=== PATIENT | male | born 1955 | race Caucasian/White ===

== ENCOUNTER 2017-01-14 09:22 | Outpatient (CLI) | payer MEDICARE, OTHER ==
[2017-01-14 11:25] LABS: ALT (SGPT) 8 U/L (0-55); AST (SGOT) 8 U/L (5-34); Albumin 4.1 g/dL (3.4-4.8); Alkaline Phosphatase 98 U/L (40-150); Anion Gap 15 mmol/L (10-20); BUN (Urea Nitrogen) 34 mg/dL (8.4-25.7); Bilirubin, Total 0.7 mg/dL (0.2-1.2); Calc. Creatinine Clearance 0 mL/min (70-130); Calcium 9.3 mg/dL (7.8-10.44); Carbon Dioxide 30 mmol/L (23-31); Chloride 97 mmol/L (98-107); Cholesterol 137 mg/dL (< 200 Desired); Estimated GFR-MDRD 61; Globulin 2.8 g/dL (2.4-3.5); Glucose 236 mg/dL (80-115); HDL Cholesterol 34 mg/dL (>60 Neg Risk); LDL Cholesterol, Calculated 59 mg/dL; Potassium 4.2 mmol/L (3.5-5.1); Protein, Total 6.9 g/dL (5.8-8.1); Sodium 138 mmol/L (136-145); Triglycerides 221 mg/dL (Less than 150)
[2017-01-14 11:26] LABS: #Basophils 0.1 thou/uL (0.0-0.2); #Eosinphils 0.5 thou/uL (0.0-0.7); #Lymphocytes 3.1 thou/uL (1.20-3.40); #Monocytes 0.9 thou/uL (0.11-0.59); #Neutrophils 7.8 thou/uL (1.40-6.50); %Basophils 0.9 % (0.0-1.0); %Eosinophils 4.1 % (0.0-10.0); %Lymphocytes 25.2 % (21.0-51.0); %Monocytes 6.9 % (0.0-10.0); %Neutrophils 62.9 % (42.0-75.0); Hemoglobin 16.3 g/dL (14.0-18.0); Mean Corpuscular Hemoglobin 26.3 pg (27.0-31.0); Mean Corpuscular Volume 84.8 fl (80.0-94.0); Mean Platelet Volume 8.5 fL (7.4-10.4); Platelet Count 189 thou/uL (130-400); RBC Distribution Width 15.6 % (11.5-14.5); Red Blood Cell (RBC) Count 6.21 mill/uL (4.70-6.10); White Blood Cell (WBC) Count 12.4 thou/uL (4.8-10.8)
[2017-01-14 11:40] LABS: Hemoglobin A1c 10.9 % (4.0-6.0)
== END 2017-01-14 09:23 | disposition home or self-care (01) ==
LOC: HPCALD 09:22
PROVIDERS: ATTEND Family Medicine
DX: E78.00 Pure hypercholesterolemia, unspecified (principal); E11.9 Type 2 diabetes mellitus without complications; I10 Essential (primary) hypertension; Z12.5 Encounter for screening for malignant neoplasm of prostate
CPT/HCPCS: 36415; 80053; 80061; 83036; 85025; G0103

== ENCOUNTER 2017-04-20 10:25 | Outpatient (CLI) | payer MEDICARE, OTHER ==
[2017-04-20 11:53] LABS: #Basophils 0.2 thou/uL (0.0-0.2); #Eosinphils 0.4 thou/uL (0.0-0.7); #Lymphocytes 3.8 thou/uL (1.20-3.40); #Monocytes 0.7 thou/uL (0.11-0.59); #Neutrophils 6.8 thou/uL (1.40-6.50); %Basophils 1.3 % (0.0-1.0); %Eosinophils 3.8 % (0.0-10.0); %Lymphocytes 32.2 % (21.0-51.0); %Monocytes 5.9 % (0.0-10.0); %Neutrophils 56.8 % (42.0-75.0); Hemoglobin 15.9 g/dL (14.0-18.0); Mean Corpuscular HGB CONC 32.5 g/dL (32.0-36.0); Mean Corpuscular Hemoglobin 26.5 pg (27.0-31.0); Mean Corpuscular Volume 81.3 fl (80.0-94.0); Mean Platelet Volume 7.2 fL (7.4-10.4); Platelet Count 278 thou/uL (130-400); RBC Distribution Width 14.9 % (11.5-14.5); White Blood Cell (WBC) Count 11.9 thou/uL (4.8-10.8)
[2017-04-20 12:12] LABS: Hemoglobin A1c 9.3 % (4.0-6.0)
[2017-04-20 12:13] LABS: ALT (SGPT) 13 U/L (8-55); AST (SGOT) 10 U/L (5-34); Albumin 3.8 g/dL (3.4-4.8); Alkaline Phosphatase 110 U/L (40-150); Anion Gap 17 mmol/L (10-20); BUN (Urea Nitrogen) 25 mg/dL (8.4-25.7); Bilirubin, Total 0.5 mg/dL (0.2-1.2); Calc. Creatinine Clearance 0 mL/min (70-130); Calcium 9.5 mg/dL (7.8-10.44); Carbon Dioxide 29 mmol/L (23-31); Cardiac Risk 3.4 (Less than 4.5); Chloride 98 mmol/L (98-107); Cholesterol 116 mg/dl (< 200 Desired); Estimated GFR-MDRD 81; Globulin 3.5 g/dL (2.4-3.5); Glucose 97 mg/dL (80-115); HDL Cholesterol 34 mg/dL (>60 Neg Risk); LDL Cholesterol, Calculated 41 mg/dL; Potassium 4.1 mmol/L (3.5-5.1); Protein, Total 7.3 g/dL (5.8-8.1); Sodium 140 mmol/L (136-145); Triglycerides 204 mg/dL (Less than 150)
== END 2017-04-20 10:26 | disposition home or self-care (01) ==
LOC: HPCALD 10:25
PROVIDERS: ATTEND Family Medicine
DX: E78.00 Pure hypercholesterolemia, unspecified (principal); E11.9 Type 2 diabetes mellitus without complications; I10 Essential (primary) hypertension
CPT/HCPCS: 36415; 80053; 80061; 83036; 85025

== ENCOUNTER 2018-02-21 15:30 | Inpatient (IN) | payer MEDICARE ==
[2018-02-21 16:11] VITALS: BMI 44.1
[2018-02-21 16:22] LABS: #Basophils 0.1 thou/uL (0.0-0.2); #Eosinphils 0.2 thou/uL (0.0-0.7); #Lymphocytes 2.3 thou/uL (1.20-3.40); #Monocytes 0.5 thou/uL (0.11-0.59); %Basophils 1.3 % (0.0-1.0); %Eosinophils 2.6 % (0.0-10.0); %Monocytes 5.9 % (0.0-10.0); %Neutrophils 65.2 % (42.0-75.0); Hemoglobin 16.1 g/dL (14.0-18.0); Mean Corpuscular HGB CONC 33.3 g/dL (32.0-36.0); Mean Corpuscular Hemoglobin 25.9 pg (27.0-31.0); Mean Corpuscular Volume 77.9 fl (80.0-94.0); Mean Platelet Volume 6.6 fL (7.4-10.4); Platelet Count 239 thou/uL (130-400); RBC Distribution Width 15.2 % (11.5-14.5); Red Blood Cell (RBC) Count 6.19 mill/uL (4.70-6.10); White Blood Cell (WBC) Count 9.2 thou/uL (4.8-10.8)
[2018-02-21] MEDS ORDERED: VANCOMYCIN IVPB PRN (16:27)
[2018-02-21 16:36] LABS: ALT (SGPT) 10 U/L (8-55); AST (SGOT) 7 U/L (5-34); Albumin 3.7 g/dL (3.4-4.8); Alkaline Phosphatase 93 U/L (40-150); Anion Gap 14 mmol/L (10-20); BUN (Urea Nitrogen) 15 mg/dL (8.4-25.7); Bilirubin, Total 0.9 mg/dL (0.2-1.2); Calc. Creatinine Clearance 220 mL/min (70-130); Calcium 9.6 mg/dL (7.8-10.44); Carbon Dioxide 29 mmol/L (23-31); Chloride 101 mmol/L (98-107); Estimated GFR-MDRD Greater than 90; Globulin 3.2 g/dL (2.4-3.5); Glucose 142 mg/dL (80-115); Potassium 4.3 mmol/L (3.5-5.1); Protein, Total 6.9 g/dL (5.8-8.1); Sodium 140 mmol/L (136-145)
[2018-02-21] MEDS ORDERED: Sodium Chloride 0.9% 10 ML ONE (16:56)
[2018-02-21] MEDS: Vancomycin HCl 1 GM in Sodium Chloride 0.9% 250 ML 250 ML IVPB SCH ×2 (17:03→19:04)
[2018-02-21] MEDS: Nicotine 21 MG PATCH TD SCH (17:19)
[2018-02-21] MEDS ORDERED: Calcium Carbonate 500 MG ChewTAB PO PRN (17:23)
[2018-02-21] MEDS: Carvedilol 3.125 MG TAB PO SCH ×2 (18:55→21:00)
[2018-02-21] MEDS: Gabapentin 300 MG CAP PO SCH (20:50)
[2018-02-21] MEDS ORDERED: Atorvastatin Calcium 40 MG TAB PO SCH (21:00)
[2018-02-21] MEDS: Nystatin Powder 15 GM BOT TOP SCH (21:02)
[2018-02-21] MEDS ORDERED: Carvedilol 3.125 MG TAB PO SCH (21:15)
--- NOTE | 2018-02-21 23:46 | HP ---
DATE OF ADMISSION: 02/21/2018 CHIEF COMPLAINT: Cellulitis. HISTORY OF PRESENT ILLNESS: A 62-year-old male with insulin-dependent diabetes mellitus and history of peripheral vascular disease who presented to the outpatient clinical setting today with complaints of a worsening ulcer to the right lower extremity that has been present for the last 1-2 weeks. The patient states he initially had a scab; however, this came off and he then realized that the wound was deeper than he initially thought. He also complains of the area becoming more sore with erythema and superficial warmth. The patient has had prior toe amputations in conjunction with his comorbidities. Denies having fever, chills, or diaphoresis. Last A1c was 8.0 as of 10/25/2017. Due to the patient's worsening ulceration of the right lower extremity, peripheral vascular disease, and insulin-dependent diabetes mellitus with prior toe amputation, he is being admitted for treatment of the cellulitis and further wound care. He was directly admitted from the clinical setting with wound culture obtained amongst lab work followed by initiation of IV vancomycin. PAST MEDICAL HISTORY: Hypertension, insulin-dependent diabetes mellitus, hyperlipidemia, peripheral vascular disease, CAD, gastroesophageal reflux disease, hypokalemia. PAST SURGICAL HISTORY: Quadruple bypass, amputation of the great toes bilaterally. SOCIAL HISTORY: Patient is a smoker. Denies EtOH or illicit drug use. ALLERGIES: PENICILLIN. FAMILY HISTORY: Noncontributory. CURRENT MEDICATIONS: Include aspirin 81 mg p.o. daily, atorvastatin 40 mg p.o. at bedtime, calcium carbonate 500 mg p.o. q.i.d. p.r.n., carvedilol 6.25 mg p.o. b.i.d., Plavix 75 mg p.o. daily, Jardiance 25 mg p.o. daily, Bydureon 2 mg subcutaneously once a week, Zetia 10 mg p.o. daily, gabapentin 300 mg p.o. t.i.d., Toujeo 80 units subcutaneously daily, lisinopril 10 mg p.o. daily, metformin 1000 mg p.o. b.i.d., potassium chloride 20 mEq p.o. daily, Zoloft 100 mg p.o. daily, torsemide 50 mg p.o. daily. REVIEW OF SYSTEMS: General: Denies fever, chills, or diaphoresis. Ear, Nose, and Throat: Denies sore throat, nasal drainage, or congestion. Cardiovascular : Denies chest pain or palpitations. Respiratory: Denies shortness of breath or cough. Gastrointestinal: Denies abdominal pain, nausea, vomiting, diarrhea , or constipation. Genitourinary: Denies dysuria. No hematuria. Musculoskeletal: Denies joint pain. Derm: Complaints of skin ulceration to the right lower extremity with erythema and superficial warmth. Neurologic: Denies headache. LABORATORY DATA: CBC shows white blood cell count 9.2, H and H is 16.1 and 48.3 , platelets 239,000. All electrolytes are normal. Glucose 142, BUN is 15, creatinine 0.78 with a GFR greater than 90. PHYSICAL EXAMINATION: VITAL SIGNS: Temperature is 98.8, pulse is 69, respiratory rate 24, oxygen 92% on room air, blood pressure is 151/67. GENERAL: The patient is alert and oriented, in no acute distress, obese. FACE: No asymmetry. EYES: Conjunctivae are clear. Extraocular muscles are intact bilaterally. No discharge. Bilateral cataracts. HEAD, EYES, EARS, NOSE, AND THROAT: Within normal limits. Oral cavity has moist mucous membranes. NECK: Supple. No lymphadenopathy or meningeal signs. CARDIOVASCULAR: Regular rate and rhythm, normal S1, S2. No murmurs, rubs, or gallops. RESPIRATORY: Clear to auscultation bilaterally without wheezes, rales, or rhonchi. GASTROINTESTINAL: Soft, nontender to palpation. No masses. Central obesity. EXTREMITIES: Edema to bilateral lower extremities with chronic peripheral vascular disease changes, great toes are amputated along with a left second toe. SKIN: Shows a 1.1 x 5 cm stage III ulcer to the lateral right lower extremity approximately 2 x 2 cm annular stage III ulcer inferior to this, there is superficial warmth to the anterior right lower extremity with swelling of the right calf. Candidal intertriginous rash to the inguinal folds. NEUROLOGIC: Nonfocal. ASSESSMENT AND PLAN: 1. Cellulitis of the right lower extremity. Wound cultures have been obtained and the patient has been started on vancomycin empirically, which is to be titrated per pharmacy protocol. 2. Stage III skin ulcer. We will follow up wound culture and provide wound care for the patient. 3. Smoker. We will provide patient with a nicotine patch and I have advised smoking cessation in light of history of coronary artery disease, peripheral vascular disease, amputated toes, and current skin ulcerations. 4. Obstructive sleep apnea. The patient will use his home BiPAP. 5. Insulin-dependent diabetes mellitus. We will resume his usual medications and mild a.c. and at bedtime glucose checks. 6. Hypertension. The patient is hemodynamically stable. Resume his usual home blood pressure medications. 7. Hyperlipidemia. We will continue the patient's statin. 8. Candidal intertrigo. The patient will be provided nystatin topical powder. 9. Prophylaxis. The patient is on H2 severo and will resume Plavix and aspirin. MTDD
[2018-02-22] MEDS: Vancomycin HCl 1 GM in Sodium Chloride 0.9% 250 ML 250 ML IVPB SCH ×4 (04:25→17:29)
[2018-02-22 04:56] LABS: #Basophils 0.2 thou/uL (0.0-0.2); #Eosinphils 0.2 thou/uL (0.0-0.7); #Lymphocytes 2.8 thou/uL (1.20-3.40); #Monocytes 0.7 thou/uL (0.11-0.59); #Neutrophils 5.3 thou/uL (1.40-6.50); %Basophils 2.3 % (0.0-1.0); %Eosinophils 2.6 % (0.0-10.0); %Lymphocytes 30.3 % (21.0-51.0); %Monocytes 7.6 % (0.0-10.0); %Neutrophils 57.2 % (42.0-75.0); Hemoglobin 15.7 g/dL (14.0-18.0); Mean Platelet Volume 6.7 fL (7.4-10.4); Platelet Count 236 thou/uL (130-400); RBC Distribution Width 15.3 % (11.5-14.5); Red Blood Cell (RBC) Count 6.04 mill/uL (4.70-6.10); White Blood Cell (WBC) Count 9.3 thou/uL (4.8-10.8)
[2018-02-22 05:09] LABS: ALT (SGPT) 10 U/L (8-55); AST (SGOT) 8 U/L (5-34); Albumin 3.5 g/dL (3.4-4.8); Alkaline Phosphatase 82 U/L (40-150); Anion Gap 13 mmol/L (10-20); BUN (Urea Nitrogen) 12 mg/dL (8.4-25.7); Bilirubin, Total 0.7 mg/dL (0.2-1.2); Calc. Creatinine Clearance 238 mL/min (70-130); Calcium 9.2 mg/dL (7.8-10.44); Carbon Dioxide 27 mmol/L (23-31); Chloride 105 mmol/L (98-107); Estimated GFR-MDRD Greater than 90; Globulin 2.9 g/dL (2.4-3.5); Glucose 112 mg/dL (80-115); Potassium 3.9 mmol/L (3.5-5.1); Protein, Total 6.4 g/dL (5.8-8.1); Sodium 141 mmol/L (136-145)
[2018-02-22] MEDS ORDERED: Dextrose 5% in Water 1,000 ML IV PRN (07:27)
[2018-02-22] MEDS ORDERED: HumaLOG 300 UNITS/3 ML VIAL SC PRN (07:27)
[2018-02-22] MEDS ORDERED: Dextrose 50% Abboject 50 ML SYRINGE SLOW IVP PRN (07:27)
[2018-02-22] MEDS ORDERED: Albuterol Sulfate 1.25 MG/3 ML NEB NEB PRN (07:31)
[2018-02-22] MEDS: metFORMIN 500 MG TAB PO SCH ×2 (08:38→20:54)
[2018-02-22] MEDS: Fish Oil 1,000 MG CAP PO SCH ×2 (08:38→20:54)
[2018-02-22] MEDS: Potassium Chloride 20 MEQ TAB PO SCH (08:39)
[2018-02-22] MEDS: Torsemide 20 MG TAB PO SCH (08:39)
[2018-02-22] MEDS: Aspirin 81 mg Enteric Coated Tablet PO SCH (08:39)
[2018-02-22] MEDS: Gabapentin 300 MG CAP PO SCH ×3 (08:39→20:55)
[2018-02-22] MEDS: Carvedilol 3.125 MG TAB PO SCH ×2 (08:41→20:55)
[2018-02-22] MEDS: Lisinopril 10 MG TAB PO SCH (08:41)
[2018-02-22] MEDS: Clopidogrel Bisulfate 75 MG TAB PO SCH (08:46)
[2018-02-22] MEDS: Ezetimibe 10 MG TAB PO SCH (08:46)
[2018-02-22] MEDS: Nicotine 21 MG PATCH TD SCH ×2 (08:47→17:05)
[2018-02-22] MEDS: Nystatin Powder 15 GM BOT TOP SCH ×2 (08:47→20:56)
[2018-02-22] MEDS: Empagliflozin [Jardiance] 25 MG PO SCH (08:47)
[2018-02-22] MEDS: INSULIN GLARGINE HUM REC ANLOG 80 UNIT SC SCH (09:08)
[2018-02-22] MEDS ORDERED: Atorvastatin Calcium 10 MG TAB PO SCH (21:00)
[2018-02-23 04:53] VITALS: TEMP 98.2
[2018-02-23] MEDS: Vancomycin HCl 1 GM in Sodium Chloride 0.9% 250 ML 250 ML IVPB SCH ×3 (05:07→16:18)
[2018-02-23] MEDS: Nicotine 21 MG PATCH TD SCH (08:30)
[2018-02-23] MEDS: Torsemide 20 MG TAB PO SCH (08:31)
[2018-02-23] MEDS: Carvedilol 3.125 MG TAB PO SCH (08:32)
[2018-02-23] MEDS: Clopidogrel Bisulfate 75 MG TAB PO SCH (08:33)
[2018-02-23] MEDS: metFORMIN 500 MG TAB PO SCH (08:33)
[2018-02-23] MEDS: Lisinopril 10 MG TAB PO SCH (08:33)
[2018-02-23] MEDS: Gabapentin 300 MG CAP PO SCH ×2 (08:34→14:33)
[2018-02-23] MEDS: Fish Oil 1,000 MG CAP PO SCH (08:34)
[2018-02-23] MEDS: Aspirin 81 mg Enteric Coated Tablet PO SCH (08:34)
[2018-02-23] MEDS: Potassium Chloride 20 MEQ TAB PO SCH (08:34)
[2018-02-23] MEDS: Ezetimibe 10 MG TAB PO SCH (08:34)
[2018-02-23] MEDS: Empagliflozin [Jardiance] 25 MG PO SCH (08:39)
[2018-02-23] MEDS: INSULIN GLARGINE HUM REC ANLOG 80 UNIT SC SCH (08:40)
[2018-02-23] MEDS: Nystatin Powder 15 GM BOT TOP SCH (08:42)
[2018-02-23 16:28] VITALS: BP 119/56
--- NOTE | 2018-02-23 17:54 | DIS ---
DATE OF ADMISSION: 02/21/2018 DATE OF DISCHARGE: 02/23/2018 ADMISSION DIAGNOSES: Cellulitis of the right lower extremity, stage 3 skin ulcer right lower extremi ty, insulin-dependent diabetes mellitus, hypertension, obstructive sleep apnea, smoker, obesity and c andidal intertrigo. PROCEDURES: None. HOSPITAL COURSE: A 62-year-old male with insulin-dependent diabetes and history of peripheral vascul ar disease who presented to the outpatient clinical setting with a stage III ulcer to the right lower extremity with surrounding superficial warmth and erythema that had been worsening over a 1-2 week t brenna period. He was directly admitted to the hospital in light of these findings and history of prior toe amputation related to his aforementioned comorbidities. Wound culture was obtained and he was s tarted empirically on vancomycin. The patient received wound care during his stay. His wound cultur e isolated MRSA which was sensitive to the treatment with vancomycin. He has remained afebrile and h e has no leukocytosis. We will plan to transition the patient to a course of p.o. Bactrim per the fi nalized wound culture. He will further have continued wound care via [facility]. He feels improved overall and is amenable to discharge at this time. DISPOSITION: The patient will discharge to his home setting and will have further wound care followu p via [facility]. FOLLOWUP: He may follow up with myself in the clinic in a week. DISCHARGE MEDICATIONS: Two new medications include Bactrim-DS 800/160 mg p.o. b.i.d. x10 days, Nysta tin powder b.i.d. p.r.n. He will resume his usual home medications which include aspirin 81 mg p.o. daily, atorvastatin 40 mg p.o. at bedtime, calcium carbonate 500 mg p.o. q.i.d. p.r.n., carvedilol 6. 25 mg p.o. b.i.d., Plavix 75 mg p.o. daily, Jardiance 25 mg p.o. daily, Bydureon 2 mg subcutaneously weekly, Zetia 10 mg p.o. daily, gabapentin 300 mg p.o. t.i.d., Toujeo 80 units subcutaneously daily, lisinopril 10 mg p.o. daily, metformin 1000 mg p.o. b.i.d., potassium chloride 20 mEq p.o. daily, Zol oft 100 mg p.o. daily and torsemide 50 mg p.o. daily.
[2018-02-28] MEDS ORDERED: (Exenatide Microspheres [Bydureon] 2 MG) SC SCH (09:00)
== END 2018-02-23 19:00 | disposition home health service (06) | DRG 638 ==
LOC: BURMED 15:30
PROVIDERS: ADMIT Family Medicine; ATTEND Family Medicine
DX: E11.621 Type 2 diabetes mellitus with foot ulcer (principal); L03.115 Cellulitis of right lower limb; Z68.41 Body mass index [BMI] 40.0-44.9, adult; L97.511 Non-pressure chronic ulcer of other part of right foot limited to breakdown of skin; E11.42 Type 2 diabetes mellitus with diabetic polyneuropathy; F17.210 Nicotine dependence, cigarettes, uncomplicated; G47.33 Obstructive sleep apnea (adult) (pediatric); Z79.4 Long term (current) use of insulin; I10 Essential (primary) hypertension; E78.5 Hyperlipidemia, unspecified; B37.2 Candidiasis of skin and nail; E66.9 Obesity, unspecified; B95.62 Methicillin resistant Staphylococcus aureus infection as the cause of diseases classified elsewhere; I25.10 Atherosclerotic heart disease of native coronary artery without angina pectoris
CPT/HCPCS: 36415; 36416; 80053; 80202; 85025; 87070; 87186; 87205; 97602; A4216; G8990-GP-CH; G8991-GP-CH; J3370; J7050

== ENCOUNTER 2018-10-17 17:58 | Inpatient (IN) | payer MEDICARE ==
[2018-10-17 20:05] LABS: #Basophils 0.1 thou/uL (0.0-0.2); #Eosinphils 0.3 thou/uL (0.0-0.7); #Lymphocytes 2.6 thou/uL (1.20-3.40); #Monocytes 0.6 thou/uL (0.11-0.59); #Neutrophils 6.9 thou/uL (1.40-6.50); %Basophils 1.3 % (0.0-1.0); %Eosinophils 2.5 % (0.0-10.0); %Lymphocytes 24.6 % (21.0-51.0); %Monocytes 5.6 % (0.0-10.0); %Neutrophils 66.1 % (42.0-75.0); Hemoglobin 15.9 g/dL (14.0-18.0); Mean Corpuscular HGB CONC 31.3 g/dL (32.0-36.0); Mean Corpuscular Hemoglobin 26.1 pg (27.0-31.0); Mean Corpuscular Volume 83.5 fL (78.0-98.0); Mean Platelet Volume 7.5 fL (7.4-10.4); Platelet Count 261 thou/uL (130-400); RBC Distribution Width 14.4 % (11.5-14.5); White Blood Cell (WBC) Count 10.4 thou/uL (4.8-10.8)
[2018-10-17 20:21] LABS: ALT (SGPT) 9 U/L (8-55); AST (SGOT) 8 U/L (5-34); Albumin 3.7 g/dL (3.4-4.8); Alkaline Phosphatase 94 U/L (40-150); Anion Gap 16 mmol/L (10-20); BUN (Urea Nitrogen) 22 mg/dL (8.4-25.7); Bilirubin, Total 0.5 mg/dL (0.2-1.2); Calc. Creatinine Clearance 0 mL/min (70-130); Calcium 9.5 mg/dL (7.8-10.44); Carbon Dioxide 29 mmol/L (23-31); Chloride 101 mmol/L (98-107); Estimated GFR-MDRD 81; Globulin 3.5 g/dL (2.4-3.5); Glucose 183 mg/dL (80-115); Protein, Total 7.2 g/dL (5.8-8.1); Sodium 142 mmol/L (136-145)
[2018-10-17] MEDS ORDERED: Sodium Chloride 0.9% 10 ML ONE (23:09)
[2018-10-17 23:16] VITALS: BMI 35.9
[2018-10-18] MEDS ORDERED: Dextrose 5% in Water 1,000 ML IV PRN (07:12)
[2018-10-18] MEDS ORDERED: HumaLOG 300 UNITS/3 ML VIAL SC PRN (07:12)
[2018-10-18] MEDS ORDERED: Dextrose 50% Abboject 50 ML SYRINGE SLOW IVP PRN (07:12)
[2018-10-18] MEDS ORDERED: (Exenatide Microspheres [Bydureon] 2 MG) SQ SCH (09:00)
[2018-10-18] MEDS: Famotidine 20 MG TAB PO SCH ×2 (09:55→21:53)
[2018-10-18] MEDS: Torsemide 20 MG TAB PO SCH (09:55)
[2018-10-18] MEDS: Ezetimibe 10 MG TAB PO SCH (09:55)
[2018-10-18] MEDS: Gabapentin 300 MG CAP PO SCH ×3 (09:55→21:53)
[2018-10-18] MEDS: metFORMIN 500 MG TAB PO SCH ×2 (09:57→21:53)
[2018-10-18] MEDS: Clopidogrel Bisulfate 75 MG TAB PO SCH (09:58)
[2018-10-18] MEDS: Lisinopril 10 MG TAB PO SCH (09:58)
[2018-10-18] MEDS: Aspirin 81 mg Enteric Coated Tablet PO SCH (09:58)
[2018-10-18] MEDS: Potassium Chloride 20 MEQ TAB PO SCH (09:58)
[2018-10-18] MEDS: Enoxaparin Sodium 40 MG/0.4 ML SYRINGE SC SCH (09:59)
[2018-10-18] MEDS: Saccharomyces boulardii 250 MG CAP PO SCH (09:59)
[2018-10-18] MEDS: Nystatin Cream 15 GM TUBE TOP SCH (09:59)
[2018-10-18] MEDS: Carvedilol 12.5 MG TAB PO SCH ×2 (10:01→22:01)
[2018-10-18] MEDS: (Empagliflozin [Jardiance] 25 MG) PO SCH (10:02)
[2018-10-18] MEDS: Vancomycin HCl 1 GM in Premix Bag 1 BAG IVPB SCH ×2 (10:27→21:55)
[2018-10-18] MEDS: Lantus 1000 UNITS/10 ML VIAL SC SCH (10:28)
--- NOTE | 2018-10-18 12:38 | HP ---
CHIEF COMPLAINT: Cellulitis of the right lower extremity. HISTORY OF PRESENT ILLNESS: A 63-year-old male with underlying coronary artery disease, peripheral vascular disease, type-2 diabetes mellitus, hypertension, and chronic venous stasis, presented to [facility] Emergency Department yesterday evening with complaints of worsening pain, erythema, and weeping of his right lower extremity. The patient has a prior history of amputation of toes to bilateral feet related to complication from his vasculopathic state and diabetes mellitus. He reports he developed a low-grade fever at home prior to evaluation in the emergency department. In the emergency department, labs were largely stable with a white blood cell count of 10.4 and lactic acid at 1.5. He was started on vancomycin and Levaquin empirically and subsequently admitted to the floor. As of this morning , the patient reports no significant pain at this time. His wounds have been dressed. Cultures are pending. The patient states that he allowed this to happen as he has been concerned with his 's health and trying to help take care of her while somewhat neglecting his own health. PAST MEDICAL HISTORY: Includes coronary artery disease, peripheral vascular disease, type-2 diabetes mellitus, hypertension, and chronic venous stasis. PAST SURGICAL HISTORY: Quadruple bypass, amputation of great toes bilaterally, and amputation of the second toe on the left foot. SOCIAL HISTORY: The patient is a smoker. Denies ETOH or illicit drug use. ALLERGIES: PENICILLIN. FAMILY HISTORY: Noncontributory. CURRENT MEDICATIONS: Include; 1. Ranitidine 75 mg p.o. b.i.d. 2. Plavix 75 mg p.o. daily. 3. Aspirin 81 mg p.o. daily. 4. Jardiance 25 mg p.o. daily. 5. Coreg 6.25 mg p.o. b.i.d. 6. Lisinopril 10 mg p.o. daily. 7. Potassium chloride extended release 20 mEq p.o. daily. 8. Toujeo 90 units subcutaneously daily. 9. Bydureon 2 mg injection weekly. 10. Metformin 1000 mg p.o. b.i.d. 11. Atorvastatin 80 mg half-tablet daily. 12. Sertraline 100 mg p.o. daily. 13. Torsemide 100 mg half-tablet p.o. daily. 14. Gabapentin 300 mg p.o. t.i.d. 15. Zetia 10 mg p.o. daily. REVIEW OF SYSTEMS: GENERAL: Reports low-grade fever. EARS, NOSE, AND THROAT: Denies sore throat, nasal drainage, or congestion. CARDIOVASCULAR: Denies chest pain or palpitations. RESPIRATORY: Denies shortness of breath or cough. GASTRO: Denies abdominal pain, nausea, vomiting, diarrhea, or constipation. GENITOURINARY: Denies dysuria. MUSCULOSKELETAL: Denies joint pain. DERM: Complains of weeping lesions with erythema to the right lower extremity. NEURO: Denies headache. DIAGNOSTIC STUDIES: Labs; white blood cell count is 10.4, H and H are 15.9 and 50.9, and platelets are 261. Sodium 142, potassium 4.0, BUN 22, creatinine 0.94 with GFR of 81, glucose 183, lactic acid 1.5. Normal LFTs. Normal troponin. PHYSICAL EXAMINATION: VITAL SIGNS: Temperature is 97.5, pulse is 60, respiratory rate is 18, oxygen is 90% on 2 L, blood pressure is 131/59. GENERAL: The patient is alert and oriented, in no acute distress. He is morbidly obese. FACE: No asymmetry. EYES: Conjunctivae are clear. Extraocular muscles are intact bilaterally. No discharge. Bilateral cataracts. HEAD, EYES, EARS, NOSE, AND THROAT: Within normal limits. Oral cavity, dry mucous membranes. NECK: Supple. No lymphadenopathy. CARDIOVASCULAR: Distant heart sounds. Regular rate. Normal S1, S2. RESPIRATORY: Clear to auscultation bilaterally with no wheezes, rales, or rhonchi. GASTROINTESTINAL: Soft, nontender to palpation. Umbilical hernia reducible. EXTREMITIES: He has trace edema to bilateral lower extremities with peripheral vascular disease changes. Great toes are amputated along with the left second toe. Approximately, 3 x 6 cm ulcerated lesion with 2 adjacent 2.5 x 2.5 cm ulcers to the distal lateral right lower extremity. SKIN: He has an intertriginous rash to the groin. NEUROLOGIC: Nonfocal. ASSESSMENT AND PLAN: 1. Cellulitis of the right lower extremity. The patient has been started empirically on vancomycin and Levaquin. We will have Pharmacy titrate dose of vancomycin per protocol. We will trend the patient's CBC and follow up wound culture and blood cultures with plan to transition from IV antibiotics at that time to p.o. antibiotics. 2. Venous stasis ulcers. We will provide wound care and keep legs elevated as possible. 3. Type-2 diabetes mellitus, insulin dependent. We will resume the patient's home diabetic regimen with a.c. and at bedtime glucose checks and addition of sliding scale. 4. Hypertension. The patient is hemodynamically stable. We will resume the patient's blood pressure medications. 5. Coronary artery disease. The patient is on Plavix and aspirin, these will be resumed. 6. Dyslipidemia. Statin will be resumed. 7. Intertrigo to the groin. I have ordered nystatin powder. 8. Obstructive sleep apnea. The patient has a CPAP for overnight use. 9. Prophylaxis. We will avoid SCDs to the extremity secondary to his venous stasis ulcers and cellulitis. The patient has been started on Lovenox for DVT prophylaxis. We will add a PPI for GI prophylaxis and we will also add a probiotic secondary to the patient being on antibiotic therapy. Job ID: [id number] [email or web address]
[2018-10-18] MEDS: Atorvastatin Calcium 10 MG TAB PO SCH (21:52)
[2018-10-19] MEDS: Nystatin Cream 15 GM TUBE TOP SCH ×3 (00:24→22:59)
[2018-10-19] MEDS ORDERED: VANCOMYCIN IVPB PRN (02:54)
[2018-10-19 05:22] LABS: #Basophils 0.1 thou/uL (0.0-0.2); #Eosinphils 0.3 thou/uL (0.0-0.7); #Lymphocytes 2.5 thou/uL (1.20-3.40); #Monocytes 0.5 thou/uL (0.11-0.59); #Neutrophils 5.6 thou/uL (1.40-6.50); %Basophils 1.2 % (0.0-1.0); %Lymphocytes 28.1 % (21.0-51.0); %Monocytes 5.9 % (0.0-10.0); %Neutrophils 61.7 % (42.0-75.0); Hemoglobin 15.1 g/dL (14.0-18.0); Mean Corpuscular Hemoglobin 26.3 pg (27.0-31.0); Mean Corpuscular Volume 82.3 fL (78.0-98.0); Mean Platelet Volume 7.7 fL (7.4-10.4); Platelet Count 244 thou/uL (130-400); RBC Distribution Width 14.4 % (11.5-14.5); Red Blood Cell (RBC) Count 5.75 mill/uL (4.70-6.10)
[2018-10-19 05:30] LABS: ALT (SGPT) 8 U/L (8-55); AST (SGOT) 9 U/L (5-34); Albumin 3.3 g/dL (3.4-4.8); Alkaline Phosphatase 78 U/L (40-150); Anion Gap 15 mmol/L (10-20); BUN (Urea Nitrogen) 18 mg/dL (8.4-25.7); Bilirubin, Total 0.4 mg/dL (0.2-1.2); Calc. Creatinine Clearance 163 mL/min (70-130); Calcium 9.3 mg/dL (7.8-10.44); Carbon Dioxide 27 mmol/L (23-31); Chloride 104 mmol/L (98-107); Estimated GFR-MDRD Greater than 90; Globulin 3.1 g/dL (2.4-3.5); Glucose 82 mg/dL (80-115); Potassium 3.7 mmol/L (3.5-5.1); Protein, Total 6.4 g/dL (5.8-8.1); Sodium 142 mmol/L (136-145)
[2018-10-19] MEDS ORDERED: Vancomycin HCl 1 GM in Premix Bag 1 BAG IVPB SCH (08:00)
[2018-10-19] MEDS: Saccharomyces boulardii 250 MG CAP PO SCH (09:38)
[2018-10-19] MEDS: Lisinopril 10 MG TAB PO SCH (09:38)
[2018-10-19] MEDS: Torsemide 20 MG TAB PO SCH (09:39)
[2018-10-19] MEDS: Potassium Chloride 20 MEQ TAB PO SCH (09:40)
[2018-10-19] MEDS: Gabapentin 300 MG CAP PO SCH ×3 (09:40→20:57)
[2018-10-19] MEDS: Clopidogrel Bisulfate 75 MG TAB PO SCH (09:41)
[2018-10-19] MEDS: Famotidine 20 MG TAB PO SCH ×2 (09:41→20:57)
[2018-10-19] MEDS: Aspirin 81 mg Enteric Coated Tablet PO SCH (09:41)
[2018-10-19] MEDS: Ezetimibe 10 MG TAB PO SCH (09:42)
[2018-10-19] MEDS: Carvedilol 12.5 MG TAB PO SCH ×2 (09:43→20:57)
[2018-10-19] MEDS: (Empagliflozin [Jardiance] 25 MG) PO SCH (09:46)
[2018-10-19] MEDS: Enoxaparin Sodium 40 MG/0.4 ML SYRINGE SC SCH (09:48)
[2018-10-19] MEDS: metFORMIN 500 MG TAB PO SCH ×2 (09:51→20:57)
[2018-10-19] MEDS: Lantus 1000 UNITS/10 ML VIAL SC SCH (09:52)
[2018-10-19] MEDS: Vancomycin HCl 1 GM in Premix Bag 1 BAG IVPB SCH (10:09)
[2018-10-19] MEDS ORDERED: BYDUREON 2 MG SC SCH (12:00)
[2018-10-19] MEDS: Vancomycin HCl 1 GM in Sodium Chloride 0.9% 250 ML 250 ML IVPB SCH ×2 (12:12→22:37)
[2018-10-19] MEDS: Atorvastatin Calcium 10 MG TAB PO SCH (20:56)
[2018-10-20 06:21] VITALS: TEMP 98.2
[2018-10-20] MEDS: Lantus 1000 UNITS/10 ML VIAL SC SCH (09:41)
[2018-10-20] MEDS: Saccharomyces boulardii 250 MG CAP PO SCH (09:41)
[2018-10-20] MEDS: Torsemide 20 MG TAB PO SCH (09:42)
[2018-10-20] MEDS: metFORMIN 500 MG TAB PO SCH (09:43)
[2018-10-20] MEDS: Aspirin 81 mg Enteric Coated Tablet PO SCH (09:43)
[2018-10-20] MEDS: Clopidogrel Bisulfate 75 MG TAB PO SCH (09:43)
[2018-10-20] MEDS: Potassium Chloride 20 MEQ TAB PO SCH (09:43)
[2018-10-20] MEDS: Lisinopril 10 MG TAB PO SCH (09:44)
[2018-10-20] MEDS: Ezetimibe 10 MG TAB PO SCH (09:44)
[2018-10-20] MEDS: Famotidine 20 MG TAB PO SCH (09:45)
[2018-10-20] MEDS: Carvedilol 12.5 MG TAB PO SCH (09:45)
[2018-10-20] MEDS: Gabapentin 300 MG CAP PO SCH (09:47)
[2018-10-20] MEDS: Vancomycin HCl 1 GM in Sodium Chloride 0.9% 250 ML 250 ML IVPB SCH (09:51)
[2018-10-20] MEDS: Enoxaparin Sodium 40 MG/0.4 ML SYRINGE SC SCH (09:57)
[2018-10-20 10:15] VITALS: BP 105/56
--- NOTE | 2018-10-21 09:16 | DIS ---
DATE OF ADMISSION: 10/17/2018 DATE OF DISCHARGE: 10/20/2018 ADMISSION DIAGNOSES: Cellulitis of right lower extremity, venous stasis ulcer. SECONDARY DIAGNOSES: Type 2 diabetes mellitus, hypertension, coronary artery disease, peripheral vascular disease, dyslipidemia, intertrigo, obstructive sleep apnea. PROCEDURES: Wound care. HOSPITAL COURSE: A 63-year-old male with underlying coronary artery disease, peripheral vascular disease, type 2 diabetes mellitus, hypertension, and chronic venous stasis; recently developed pain, erythema, and weeping to the right lower extremity. He developed venous stasis ulcers. His cardiovascular comorbidities have previously resulted in amputation of toes to the bilateral feet. Secondary to his worsening condition and low-grade fever, he presented to the [facility] Emergency Department. He was started on vancomycin and Levaquin after obtainment of cultures. Cultures revealed MRSA. Of note, he did have 1 of 2 positive blood cultures, which was felt to be a contaminant. He remained afebrile during his stay with no leukocytosis. He received dressing changes. He has [facility] set up for continued wound care therapy. The patient's er manager is Dr. Trivedi and they have had discussion regarding vascular stent placement to improve blood flow to the right lower extremity. He has been encouraged to follow up with Dr. Trivedi regarding this issue to maximize his wound healing potential and prevent further complications. He is a smoker and has been counseled on smoking cessation as well. At this time , the patient does feel improved and has agreed with the plan of care and will be discharged back to his home setting to complete an oral course of p.o. Bactrim per his wound culture. DISPOSITION: The patient was discharged to his home setting. He will have further wound care via [facility]. He may follow up with myself in the clinic in 1 week. He has been encouraged to follow up with his er manager, Dr. Trivedi as well sooner than later. DISCHARGE MEDICATIONS: One new medicine is Bactrim DS 1 tab p.o. b.i.d. x7 days. He will resume his usual medications, which include; 1. Ranitidine mg p.o. b.i.d. 2. Plavix 75 mg p.o. daily. 3. Aspirin 81 mg p.o. daily. 4. . 5. Coreg 6.25 mg p.o. b.i.d. 6. Potassium chloride 20 mEq p.o. daily. 7. Toujeo 90 units subcutaneously daily. 8. week. 9. Metformin 1000 mg p.o. b.i.d. 10. mg half tablet at bedtime. 11. Sertraline 100 mg p.o. daily. 12. Torsemide 50 mg p.o. daily. 13. Gabapentin 300 mg p.o. t.i.d. 14. Zetia 10 mg p.o. daily. Job ID: [id number] [email or web address]
== END 2018-10-20 14:45 | disposition home health service (06) | DRG 603 ==
LOC: BURERS 17:58 → BURMED 20:25
PROVIDERS: ADMIT Family Medicine; ATTEND Family Medicine
DX: L03.115 Cellulitis of right lower limb (principal); I25.10 Atherosclerotic heart disease of native coronary artery without angina pectoris; E11.51 Type 2 diabetes mellitus with diabetic peripheral angiopathy without gangrene; I10 Essential (primary) hypertension; I87.8 Other specified disorders of veins; E78.5 Hyperlipidemia, unspecified; G47.33 Obstructive sleep apnea (adult) (pediatric); F17.200 Nicotine dependence, unspecified, uncomplicated; L30.4 Erythema intertrigo; Z95.1 Presence of aortocoronary bypass graft; Z89.412 Acquired absence of left great toe; Z89.411 Acquired absence of right great toe; Z89.422 Acquired absence of other left toe(s); Z88.0 Allergy status to penicillin; Z79.82 Long term (current) use of aspirin; Z79.02 Long term (current) use of antithrombotics/antiplatelets; Z79.899 Other long term (current) drug therapy; Z79.84 Long term (current) use of oral hypoglycemic drugs; Z71.6 Tobacco abuse counseling
CPT/HCPCS: 36415; 36416; 80053; 83605; 84484; 85025; 87040; 87070; 87077; 87149; 87186; 87205; 96365; 96366; 96367; J1650; J1815; J1956; J3370; J7050

== ENCOUNTER 2019-07-17 16:40 | Emergency (ER) | payer MEDICARE ==
--- NOTE | 2019-07-17 17:47 | RAD ---
PORTABLE CHEST: Date: 07-17-19 Comparison: None available. FINDINGS: The heart is mildly enlarged. There is no vascular congestion or edema. The right hemidiaphragm is el evated, cause unknown, but it would not surprise me if this were longstanding. No focal pulmonary inf iltrate was seen. IMPRESSION: 1. Mild cardiomegaly without congestive change. 2. Mild elevation of the right hemidiaphragm. POS: HOME
[2019-07-17 17:51] LABS: #Basophils 0.1 thou/uL (0.0-0.2); #Lymphocytes 0.9 thou/uL (1.20-3.40); #Monocytes 0.4 thou/uL (0.11-0.59); #Neutrophils 7.9 thou/uL (1.40-6.50); %Basophils 1.1 % (0.0-1.0); %Eosinophils 0.3 % (0.0-10.0); %Lymphocytes 9.3 % (21.0-51.0); %Neutrophils 85.3 % (42.0-75.0); Hemoglobin 14.2 g/dL (14.0-18.0); Mean Corpuscular HGB CONC 32.2 g/dL (32.0-36.0); Mean Corpuscular Hemoglobin 28.4 pg (27.0-31.0); Mean Corpuscular Volume 88.1 fL (78.0-98.0); Platelet Count 201 thou/uL (130-400); RBC Distribution Width 15.3 % (11.5-14.5); Red Blood Cell (RBC) Count 4.99 mill/uL (4.70-6.10); White Blood Cell (WBC) Count 9.3 thou/uL (4.8-10.8)
[2019-07-17 18:09] LABS: ALT (SGPT) 11 U/L (8-55); AST (SGOT) 7 U/L (5-34); Albumin 3.9 g/dL (3.4-4.8); Alkaline Phosphatase 103 U/L (40-110); Anion Gap 14 mmol/L (10-20); BUN (Urea Nitrogen) 17 mg/dL (8.4-25.7); Calc. Creatinine Clearance 0 mL/min (70-130); Calcium 9.3 mg/dL (7.8-10.44); Carbon Dioxide 24 mmol/L (23-31); Chloride 98 mmol/L (98-107); Estimated GFR-MDRD 72; Globulin 3.3 g/dL (2.4-3.5); Glucose 381 mg/dL (80-115); Lipase 13 U/L (8-78); Potassium 4.2 mmol/L (3.5-5.1); Protein, Total 7.2 g/dL (5.8-8.1); Sodium 132 mmol/L (136-145)
[2019-07-17 18:47] LABS: Bilirubin Negative (Negative); Blood, Urine Negative (Negative); Clarity Clear (Clear); Glucose, Urine (Dipstick) 500 mg/dL (Negative); Leukocyte Negative (Negative); Nitrite Negative (Negative); Protein, Urine (Dipstick) Negative (Neg-Trace); Urobilinogen 0.2 mg/dL (Less than 2)
== END 2019-07-17 20:30 | disposition home or self-care (01) ==
LOC: BURERS 16:40
DX: E86.0 Dehydration (principal); E11.65 Type 2 diabetes mellitus with hyperglycemia; I10 Essential (primary) hypertension; E78.5 Hyperlipidemia, unspecified; F32.9 Major depressive disorder, single episode, unspecified; F17.210 Nicotine dependence, cigarettes, uncomplicated; Z79.899 Other long term (current) drug therapy; Z79.84 Long term (current) use of oral hypoglycemic drugs; Z79.82 Long term (current) use of aspirin
CPT/HCPCS: 36416; 71045; 80053; 81003; 83605; 83690; 83880; 84484; 85025; 93005; 96360

== ENCOUNTER 2020-01-25 17:08 | Emergency (ER) | payer MEDICARE, OTHER ==
[~2020-01-25 17:08] MED LIST: Iopamidol 370 76% 100 ML VIAL ONE
[2020-01-25 17:47] LABS: #Basophils 0.1 thou/uL (0.0-0.2); #Eosinphils 0.2 thou/uL (0.0-0.7); #Lymphocytes 1.4 thou/uL (1.20-3.40); #Monocytes 0.6 thou/uL (0.11-0.59); #Neutrophils 7.8 thou/uL (1.40-6.50); %Basophils 0.7 % (0.0-1.0); %Eosinophils 1.6 % (0.0-10.0); %Lymphocytes 13.9 % (21.0-51.0); %Monocytes 5.7 % (0.0-10.0); %Neutrophils 78.1 % (42.0-75.0); Hemoglobin 15.9 g/dL (14.0-18.0); Mean Corpuscular HGB CONC 30.6 g/dL (32.0-36.0); Mean Corpuscular Hemoglobin 26.3 pg (27.0-31.0); Mean Platelet Volume 7.7 fL (7.4-10.4); Platelet Count 238 thou/uL (130-400); Red Blood Cell (RBC) Count 6.05 mill/uL (4.70-6.10); White Blood Cell (WBC) Count 9.9 thou/uL (4.8-10.8)
[2020-01-25 17:59] LABS: ALT (SGPT) 10 U/L (8-55); AST (SGOT) 8 U/L (5-34); Albumin 4.2 g/dL (3.4-4.8); Alkaline Phosphatase 89 U/L (40-110); Anion Gap 16 mmol/L (10-20); BUN (Urea Nitrogen) 13 mg/dL (8.4-25.7); Bilirubin, Total 0.9 mg/dL (0.2-1.2); Calc. Creatinine Clearance 0 mL/min (70-130); Carbon Dioxide 31 mmol/L (23-31); Chloride 98 mmol/L (98-107); Estimated GFR-MDRD Greater than 90; Globulin 3.8 g/dL (2.4-3.5); Glucose 85 mg/dL (80-115); Potassium 4.1 mmol/L (3.5-5.1); Sodium 141 mmol/L (136-145)
--- NOTE | 2020-01-25 20:00 | RAD ---
PORTABLE CHEST: 01/25/20 An AP portable film at 1755 is compared with a 07/17/19 study. The vessels are mildly congested. The heart is mildly enlarged. I cannot see both costophrenic angles well, but there were no large pleural effusions. The findings are most in keeping with congestive fa ilure. Median sternotomy sutures tobias prior surgery. IMPRESSION: Presumed CHF. POS: HOME
[2020-01-25] MEDS ORDERED: Furosemide 40 MG/4 ML VIAL ONE (20:31)
[2020-01-25] MEDS ORDERED: Nitroglycerin 2% Ointment 1 INCH/1 GM Packet ONE (20:43)
[2020-01-25] MEDS ORDERED: Aspirin Chewable 81 MG TAB ONE (20:43)
--- NOTE | 2020-01-26 07:40 | CT ---
CT ANGIO CHEST WITH CONTRAST: Date: 01/25/[address] of the chest was performed for evaluation of this patient experiencing low grade fever, silvino rtness of breath, and CHF. Axial slices were acquired after giving a bolus of IV contrast. The body h abitus is such that it is difficult to get an excellent bolus. This study yielded a moderately good o pacification of the pulmonary arteries. There are no filling defects in the pulmonary arteries to suggest emboli in the larger to medium size branches. More distal and smaller emboli would be missed. There is no sign of aortic dissection or a neurysm. There is no pericardial effusion. There is extensive calcification of the patient's LAD and even his left main coronary artery. Lesser amounts of calcification are present in the right coronary . Regarding the lungs, there were no focal infiltrates to suggest pneumonia. No effusions present. No p ulmonary nodules of concern were detected. I would note that there was a 2.2 cm rounded soft tissue d ensity just anterior to the patient's sternum. This could be a small seroma or similar benign entity associated with the patient's prior median sternotomy. I doubt its significance. A few scans were taken into the upper abdomen which showed no findings of immediate concern. IMPRESSION: 1. Plain film and other findings suggest mild congestive heart failure. 2. Moderate sensitivity study showing no evidence of pulmonary embolism in the large to medium size branches. 3. Substantial calcification in the left anterior descending artery and even the left main coronary artery. 4. No pulmonary infiltrates or effusions. 5. 2.0 cm soft tissue density area anterior to the sternum, probably longstanding. Not a finding of current concern. Preliminary report typed into PACS. Debbie in the ER was notified that report was ready at 2019 hour s on 01/25/2020. POS: HOME
[2020-01-26 11:43] LABS: SARS-CoV-2 MS2 Positive; SARS-CoV-2 N Gene Negative; SARS-CoV-2 S Gene Negative; SARS-CoV-2 orf1ab Negative
== END 2020-01-25 21:11 | disposition short-term general hospital (02) ==
LOC: BURERS 17:08
DX: I11.0 Hypertensive heart disease with heart failure (principal); I50.9 Heart failure, unspecified; R09.02 Hypoxemia; E66.9 Obesity, unspecified; E11.9 Type 2 diabetes mellitus without complications; K21.9 Gastro-esophageal reflux disease without esophagitis; G47.33 Obstructive sleep apnea (adult) (pediatric); E78.00 Pure hypercholesterolemia, unspecified; E78.5 Hyperlipidemia, unspecified; F32.9 Major depressive disorder, single episode, unspecified; F17.210 Nicotine dependence, cigarettes, uncomplicated; Z79.899 Other long term (current) drug therapy; Z79.82 Long term (current) use of aspirin; Z79.4 Long term (current) use of insulin
CPT/HCPCS: 71045; 71275; 80053; 83605; 83880; 84484; 85025; 87040; 87635; 93005; 96374; J1940; Q9967; U0003

== ENCOUNTER 2022-10-31 11:21 | Emergency (ER) | payer MEDICARE ==
[2022-10-31 12:05] LABS: #Basophils 0.1 thou/uL (0.0-0.2); #Eosinphils 0.3 thou/uL (0.0-0.7); #Monocytes 0.6 thou/uL (0.11-0.59); #Neutrophils 7.4 thou/uL (1.40-6.50); %Basophils 0.7 % (0.0-1.0); %Eosinophils 3.2 % (0.0-10.0); %Lymphocytes 19.5 % (21.0-51.0); %Monocytes 5.5 % (0.0-10.0); %Neutrophils 71.2 % (42.0-75.0); Hemoglobin 14.2 g/dL (14.0-18.0); Mean Corpuscular HGB CONC 30.5 g/dL (32.0-36.0); Mean Corpuscular Hemoglobin 25.2 pg (27.0-31.0); Mean Corpuscular Volume 82.6 fl (78.0-98.0); Mean Platelet Volume 7.6 fL (7.4-10.4); Platelet Count 313 10x3/uL (130-400); Red Blood Cell (RBC) Count 5.63 mill/uL (4.70-6.10); White Blood Cell (WBC) Count 10.4 10x3/uL (4.8-10.8)
[2022-10-31 12:23] LABS: ALT (SGPT) 11 U/L (8-55); AST (SGOT) 6 U/L (5-34); Albumin 3.8 g/dL (3.4-4.8); Alkaline Phosphatase 107 U/L (40-110); Anion Gap 15 mmol/L (10-20); BUN (Urea Nitrogen) 30 mg/dL (8.4-25.7); Bilirubin, Total 0.6 mg/dL (0.2-1.2); Calc. Creatinine Clearance 0 mL/min (70-130); Carbon Dioxide 31 mmol/L (23-31); Chloride 98 mmol/L (98-107); Estimated GFR 62; Globulin 3.6 g/dL (2.4-3.5); Glucose 168 mg/dL (80-115); Potassium 4.4 mmol/L (3.5-5.1); Protein, Total 7.4 g/dL (5.8-8.1); Sodium 140 mmol/L (136-145)
== END 2022-10-31 13:23 | disposition home or self-care (01) ==
LOC: BURERS 11:21
DX: L03.115 Cellulitis of right lower limb (principal); I87.2 Venous insufficiency (chronic) (peripheral); E11.9 Type 2 diabetes mellitus without complications; I11.0 Hypertensive heart disease with heart failure; I50.9 Heart failure, unspecified; E78.00 Pure hypercholesterolemia, unspecified; I25.10 Atherosclerotic heart disease of native coronary artery without angina pectoris; K21.9 Gastro-esophageal reflux disease without esophagitis; Z87.891 Personal history of nicotine dependence; Z79.84 Long term (current) use of oral hypoglycemic drugs; Z79.899 Other long term (current) drug therapy; Z79.02 Long term (current) use of antithrombotics/antiplatelets
CPT/HCPCS: 36415; 80053; 85025; 99283

== ENCOUNTER 2023-03-09 18:06 | Observation (INO) | payer MEDICARE ==
[2023-03-09 18:25] LABS: #Basophils 0.1 thou/uL (0.0-0.2); #Eosinphils 0.1 thou/uL (0.0-0.7); #Lymphocytes 1.5 thou/uL (1.20-3.40); #Monocytes 0.6 thou/uL (0.11-0.59); #Neutrophils 8.2 thou/uL (1.40-6.50); %Basophils 1.4 % (0.0-1.0); %Lymphocytes 14.6 % (21.0-51.0); %Monocytes 5.4 % (0.0-10.0); %Neutrophils 77.7 % (42.0-75.0); Hemoglobin 14.9 g/dL (14.0-18.0); Mean Corpuscular HGB CONC 31.2 g/dL (32.0-36.0); Mean Corpuscular Hemoglobin 25.2 pg (27.0-31.0); Mean Corpuscular Volume 80.9 fl (78.0-98.0); Mean Platelet Volume 7.2 fL (7.4-10.4); Platelet Count 228 10x3/uL (130-400); RBC Distribution Width 16.7 % (11.5-14.5); Red Blood Cell (RBC) Count 5.89 mill/uL (4.70-6.10); White Blood Cell (WBC) Count 10.6 10x3/uL (4.8-10.8)
[2023-03-09 18:43] LABS: ALT (SGPT) 8 U/L (8-55); AST (SGOT) 8 U/L (5-34); Albumin 3.8 g/dL (3.4-4.8); Alkaline Phosphatase 101 U/L (40-110); Anion Gap 14 mmol/L (10-20); BUN (Urea Nitrogen) 39 mg/dL (8.4-25.7); CK (CPK) 56 U/L (30-200); Calc. Creatinine Clearance 0 mL/min (70-130); Calcium 9.4 mg/dL (7.8-10.44); Carbon Dioxide 29 mmol/L (23-31); Chloride 99 mmol/L (98-107); Estimated GFR 50; Globulin 3.5 g/dL (2.4-3.5); Glucose 69 mg/dL (80-115); Potassium 4.5 mmol/L (3.5-5.1); Protein, Total 7.3 g/dL (5.8-8.1); Sodium 137 mmol/L (136-145)
[2023-03-09 22:13] VITALS: BMI 46.8
[2023-03-09] MEDS ORDERED: Non-Formulary Item 1 EACH (Prednisolone Acetate/Pf [Prednisolone Acet 1% Eye Drop] 5 ML D R EYE SCH (22:15)
[2023-03-09] MEDS ORDERED: Dextrose 5% in Water 1,000 ML IV PRN (22:16)
[2023-03-09] MEDS ORDERED: Glucagon 1 MG/ML KIT IM PRN (22:16)
[2023-03-09] MEDS ORDERED: Dextrose 50% Abboject 50 ML SYRINGE SLOW IVP PRN (22:16)
[2023-03-09] MEDS ORDERED: HYDROcodone/Acetaminophen 5/325 mg Tablet PO PRN ×2 (22:25→22:26)
[2023-03-09] MEDS: Sodium Chloride 0.9% 1,000 ML IV SCH (22:30)
[2023-03-09] MEDS ORDERED: Aspirin 81 mg Enteric Coated Tablet PO SCH (22:30)
[2023-03-09] MEDS ORDERED: Carvedilol 6.25 MG TAB PO SCH (22:30)
[2023-03-09] MEDS ORDERED: Gabapentin 300 MG CAP PO SCH (22:30)
[2023-03-09] MEDS ORDERED: Atorvastatin Calcium 10 MG TAB PO SCH (22:30)
[2023-03-09] MEDS ORDERED: Clopidogrel Bisulfate 75 MG TAB PO SCH (22:30)
[2023-03-10 04:12] VITALS: BP 104/67; TEMP 97.5
[2023-03-10 05:22] LABS: Anion Gap 12 mmol/L (10-20); BUN (Urea Nitrogen) 39 mg/dL (8.4-25.7); Calc. Creatinine Clearance 136 mL/min (70-130); Calcium 8.7 mg/dL (7.8-10.44); Carbon Dioxide 28 mmol/L (23-31); Chloride 103 mmol/L (98-107); Estimated GFR 63; Glucose 100 mg/dL (80-115); Potassium 3.8 mmol/L (3.5-5.1); Sodium 139 mmol/L (136-145)
[2023-03-10] MEDS ORDERED: metFORMIN 500 MG TAB PO SCH (08:00)
[2023-03-10] MEDS: Sodium Chloride 0.9% 1,000 ML IV SCH (08:30)
[2023-03-10] MEDS ORDERED: Ezetimibe 10 MG TAB PO SCH (09:00)
[2023-03-10] MEDS ORDERED: LANCETS MC SCH (09:00)
[2023-03-10] MEDS ORDERED: Torsemide 20 MG TAB PO SCH (09:00)
[2023-03-10] MEDS ORDERED: Carvedilol 6.25 MG TAB PO SCH (09:00)
[2023-03-10] MEDS ORDERED: Lisinopril 10 MG TAB PO SCH (09:00)
[2023-03-10] MEDS ORDERED: Gabapentin 300 MG CAP PO SCH (09:00)
[2023-03-10] MEDS ORDERED: Sertraline 100 MG TAB PO SCH (09:00)
[2023-03-10] MEDS ORDERED: Potassium Chloride 20 MEQ TAB PO SCH (09:00)
[2023-03-10] MEDS ORDERED: BLOOD SUGAR DIAGNOSTIC MC SCH (09:00)
[2023-03-10] MEDS ORDERED: Empagliflozin 25 MG TAB PO SCH (09:00)
[2023-03-10] MEDS: Ketorolac Tromethamine 0.5% Ophth Soln 3 ml Bottle R EYE SCH ×2 (09:29→13:15)
[2023-03-10] MEDS ORDERED: Aspirin 81 mg Enteric Coated Tablet PO SCH (21:00)
[2023-03-10] MEDS ORDERED: Atorvastatin Calcium 10 MG TAB PO SCH (21:00)
[2023-03-10] MEDS ORDERED: Lantus 1000 UNITS/10 ML VIAL SC SCH (21:00)
[2023-03-10] MEDS ORDERED: Clopidogrel Bisulfate 75 MG TAB PO SCH (21:00)
[2023-03-16] MEDS ORDERED: EXENATIDE MICROSPHERES 2 MG SC SCH (09:00)
== END 2023-03-10 14:55 | disposition home or self-care (01) ==
LOC: BURERS 18:06 → BURMED 21:17
PROVIDERS: ADMIT Family Medicine; ATTEND Family Medicine
DX: E86.0 Dehydration (principal); R53.1 Weakness; I10 Essential (primary) hypertension; E11.9 Type 2 diabetes mellitus without complications; I73.9 Peripheral vascular disease, unspecified; K21.9 Gastro-esophageal reflux disease without esophagitis; G47.33 Obstructive sleep apnea (adult) (pediatric); E78.5 Hyperlipidemia, unspecified; I25.10 Atherosclerotic heart disease of native coronary artery without angina pectoris; E66.9 Obesity, unspecified; Z88.0 Allergy status to penicillin; Z68.42 Body mass index [BMI] 45.0-49.9, adult; Z87.891 Personal history of nicotine dependence; Z79.84 Long term (current) use of oral hypoglycemic drugs; Z79.899 Other long term (current) drug therapy; Z79.02 Long term (current) use of antithrombotics/antiplatelets; Z79.82 Long term (current) use of aspirin
CPT/HCPCS: 71045; 80048; 80053; 82550; 82962 ×2; 83880; 84484; 85025; 93005; 97602; 99285; G0378 ×2; 36415; 36416; J7050

== ENCOUNTER 2024-02-29 19:32 | Emergency (ER) | payer MEDICARE ==
[2024-02-29 20:21] LABS: #Basophils 0.1 thou/uL (0.0-0.2); #Eosinphils 0.7 thou/uL (0.0-0.7); #Lymphocytes 1.6 thou/uL (1.20-3.40); #Monocytes 0.5 thou/uL (0.11-0.59); #Neutrophils 7.3 thou/uL (1.40-6.50); %Basophils 0.6 % (0.0-1.0); %Eosinophils 7.3 % (0.0-10.0); %Lymphocytes 15.4 % (21.0-51.0); %Monocytes 5.3 % (0.0-10.0); %Neutrophils 71.4 % (42.0-75.0); Hematocrit 43.7 % (42.0-52.0); Hemoglobin 13.7 g/dL (14.0-18.0); Mean Corpuscular HGB CONC 31.3 g/dL (32.0-36.0); Mean Corpuscular Hemoglobin 25.7 pg (27.0-31.0); Mean Corpuscular Volume 82.1 fl (78.0-98.0); Mean Platelet Volume 6.6 fL (7.4-10.4); Platelet Count 248 10x3/uL (130-400); RBC Distribution Width 15.2 % (11.5-14.5); Red Blood Cell (RBC) Count 5.33 mill/uL (4.70-6.10); White Blood Cell (WBC) Count 10.2 10x3/uL (4.8-10.8)
[2024-02-29 20:49] LABS: Carbon Dioxide 32 mmol/L (23-31); Chloride 98 mmol/L (98-107); Potassium 3.6 mmol/L (3.5-5.1); Sodium 141 mmol/L (136-145)
[2024-02-29 20:50] LABS: Albumin 3.5 g/dL (3.4-4.8); Alkaline Phosphatase 100 U/L (40-110); Anion Gap 14 mmol/L (10-20); BUN (Urea Nitrogen) 31 mg/dL (8.4-25.7); Bilirubin, Total 0.5 mg/dL (0.2-1.2); Calc. Creatinine Clearance 0 mL/min (70-130); Calcium 8.9 mg/dL (7.6-10.4); Estimated GFR 85; Globulin 3.5 g/dL (2.4-3.5); Glucose 57 mg/dL (80-115)
[2024-02-29 20:51] LABS: ALT (SGPT) 12 U/L (8-55); AST (SGOT) 12 U/L (5-34)
== END 2024-02-29 21:06 | disposition home or self-care (01) ==
LOC: BURERS 19:32
DX: E11.649 Type 2 diabetes mellitus with hypoglycemia without coma (principal); I11.0 Hypertensive heart disease with heart failure; I50.9 Heart failure, unspecified; E11.51 Type 2 diabetes mellitus with diabetic peripheral angiopathy without gangrene; Z87.891 Personal history of nicotine dependence
CPT/HCPCS: 36415; 36416; 80053; 85025; 99285

== ENCOUNTER 2024-08-23 12:44 | Inpatient (IN) | payer MEDICARE ==
[2024-08-23 18:10] VITALS: BMI 44.3
[2024-08-23] MEDS ORDERED: Ipratropium/Albuterol 3 ML NEB NEB PRN (18:48)
[2024-08-23] MEDS ORDERED: Acetaminophen 325 MG TAB PO PRN (18:48)
[2024-08-23] MEDS ORDERED: Senokot S 8.6-50 MG TAB PO PRN (18:52)
[2024-08-23] MEDS ORDERED: Bisacodyl 5 MG TAB PO PRN (18:52)
[2024-08-23] MEDS ORDERED: Bisacodyl 10 MG SUPP PR PRN (18:52)
[2024-08-23] MEDS ORDERED: BLOOD SUGAR DIAGNOSTIC MC SCH (21:00)
[2024-08-23] MEDS ORDERED: LANCETS MC SCH (21:00)
[2024-08-23] MEDS: Gabapentin 300 MG CAP PO SCH (21:35)
[2024-08-23] MEDS: Famotidine 20 MG TAB PO SCH (21:36)
[2024-08-23] MEDS: Carvedilol 6.25 MG TAB PO SCH (21:36)
[2024-08-23] MEDS: Clopidogrel Bisulfate 75 MG TAB PO SCH (21:36)
[2024-08-23] MEDS: Atorvastatin Calcium 40 MG TAB PO SCH (21:36)
[2024-08-23] MEDS: Mometasone 200 MCG/Formoterol 5 MCG 60 PUFF INHALER INH SCH (21:36)
[2024-08-24 07:23] LABS: Anion Gap 19 mmol/L (10-20); BUN (Urea Nitrogen) 62 mg/dL (8.4-25.7); Calc. Creatinine Clearance 92 mL/min (70-130); Calcium 9.4 mg/dL (7.8-10.44); Carbon Dioxide 30 mmol/L (23-31); Chloride 100 mmol/L (98-107); Estimated GFR 50; Glucose 133 mg/dL (80-115); Potassium 4.1 mmol/L (3.5-5.1); Sodium 145 mmol/L (136-145)
[2024-08-24] MEDS: metFORMIN 500 MG TAB PO SCH (10:06)
[2024-08-24] MEDS: Ezetimibe 10 MG TAB PO SCH (10:06)
[2024-08-24] MEDS: Lisinopril 5 MG TAB PO SCH (10:10)
[2024-08-24] MEDS: Aspirin 81 mg Enteric Coated Tablet PO SCH (10:11)
[2024-08-24] MEDS: Sertraline 100 MG TAB PO SCH (10:11)
[2024-08-24] MEDS: Aquaphor 2.8 oz 80 GM JAR TOP SCH (10:12)
[2024-08-24] MEDS: Spironolactone 25 MG TAB PO SCH (10:13)
[2024-08-24] MEDS: Empagliflozin 25 MG TAB PO SCH (10:14)
[2024-08-27 06:12] LABS: #Basophils 0.1 thou/uL (0.0-0.2); #Eosinophils 0.6 thou/uL (0.0-0.7); #Lymphocytes 1.8 thou/uL (1.20-3.40); #Monocytes 0.5 thou/uL (0.11-0.59); #Neutrophils 3.9 thou/uL (1.40-6.50); %Basophils 1.1 % (0.0-1.0); %Eosinophils 8.2 % (0.0-10.0); %Lymphocytes 26.6 % (21.0-51.0); %Monocytes 7.4 % (0.0-10.0); %Neutrophils 56.8 % (42.0-75.0); Hemoglobin 12.1 g/dL (14.0-18.0); Mean Corpuscular Hemoglobin 26.4 pg (27.0-31.0); Mean Corpuscular Volume 82.5 fl (78.0-98.0); Mean Platelet Volume 8.8 fL (7.4-10.4); Platelet Count 239 10x3/uL (130-400); Red Blood Cell (RBC) Count 4.61 mill/uL (4.70-6.10); White Blood Cell (WBC) Count 6.9 10x3/uL (4.8-10.8)
[2024-08-27 06:32] LABS: Anion Gap 18 mmol/L (10-20); BUN (Urea Nitrogen) 103 mg/dL (8.4-25.7); Calc. Creatinine Clearance 60 mL/min (70-130); Calcium 8.6 mg/dL (7.8-10.44); Carbon Dioxide 28 mmol/L (23-31); Chloride 99 mmol/L (98-107); Estimated GFR 27; Glucose 114 mg/dL (80-115); Potassium 3.9 mmol/L (3.5-5.1); Sodium 141 mmol/L (136-145)
[2024-08-27] MEDS: Empagliflozin 10 MG TAB PO SCH (12:52)
[2024-08-27] MEDS ORDERED: Dextrose 5% in Water 1,000 ML IV PRN (17:33)
[2024-08-27] MEDS ORDERED: Dextrose 50% Abboject 50 ML SYRINGE SLOW IVP PRN (17:33)
[2024-08-27] MEDS ORDERED: Glucagon 1 MG/ML KIT IM PRN (17:33)
[2024-08-27] MEDS: Nystatin Powder 15 GM BOT TOP SCH (20:45)
[2024-08-29 12:35] VITALS: BMI 41.9
[2024-08-29] MEDS: Insulin Regular, Human 100 UNIT/ML 10 ML VIAL SC PRN (17:16)
[2024-09-01 06:28] VITALS: TEMP 97.9
[2024-09-01] MEDS: Torsemide 20 MG TAB PO SCH (08:37)
[2024-09-01 11:31] VITALS: BP 157/73
== END 2024-09-01 12:40 | disposition home or self-care (01) | DRG 945 ==
LOC: BURMED 17:52
PROVIDERS: ADMIT Family Medicine; ATTEND Nurse Practitioner
PROC: F07Z9ZZ Gait Training/Functional Ambulation Treatment (ICD-10-PCS; principal; 2024-08-24)
DX: R53.81 Other malaise (principal); I50.42 Chronic combined systolic (congestive) and diastolic (congestive) heart failure; J96.11 Chronic respiratory failure with hypoxia; Z68.41 Body mass index [BMI] 40.0-44.9, adult; I25.10 Atherosclerotic heart disease of native coronary artery without angina pectoris; E78.5 Hyperlipidemia, unspecified; I11.0 Hypertensive heart disease with heart failure; E11.9 Type 2 diabetes mellitus without complications; G47.33 Obstructive sleep apnea (adult) (pediatric); R26.89 Other abnormalities of gait and mobility; E66.9 Obesity, unspecified; Z88.0 Allergy status to penicillin
CPT/HCPCS: 36415; 36416; 80048; 85025; 94664; J1815

== ENCOUNTER 2025-04-26 14:11 | Emergency (ER) | payer MEDICARE ==
[2025-04-26] MEDS ORDERED: Aspirin Chewable 81 MG TAB ONE (14:19)
[2025-04-26 14:53] LABS: Glucose, Urine (Dipstick) Negative (Negative); Leukocyte Negative (Negative); Protein, Urine (Dipstick) 100 mg/dL (Neg-Trace); Specific Gravity, Urine 1.010 (1.005-1.030)
[2025-04-26 15:03] LABS: Bacteria/HPF 3+ HPF (None Seen); CAUTI Indications for Culture Alt mental st,lethar; RBC/HPF 0-3 HPF (0-3); Urine Culture Reflex No No; WBC/HPF 0-3 HPF (0-3)
[2025-04-26] MEDS ORDERED: LevoFLOXacin 750 mg/D5W 150 ml Premix Bag ONE (15:43)
== END 2025-04-26 17:45 | disposition short-term general hospital (02) ==
LOC: BURERS 14:11
DX: R41.82 Altered mental status, unspecified (principal); J18.9 Pneumonia, unspecified organism; I11.0 Hypertensive heart disease with heart failure; I50.9 Heart failure, unspecified; E66.9 Obesity, unspecified; I25.10 Atherosclerotic heart disease of native coronary artery without angina pectoris; I48.91 Unspecified atrial fibrillation; E78.00 Pure hypercholesterolemia, unspecified; R29.701 NIHSS score 1; Z79.899 Other long term (current) drug therapy; Z79.84 Long term (current) use of oral hypoglycemic drugs; Z79.85 Long-term (current) use of injectable non-insulin antidiabetic drugs; Z87.891 Personal history of nicotine dependence
CPT/HCPCS: 71045; 81001; 83880; 93005; 96365; 96366; J1956